=== PATIENT | female | born 1950 | race Caucasian/White ===

== ENCOUNTER → 2016-04-10 | Outpatient (CLI) | payer BC, MEDICARE ==
[~2016-04-10] MED LIST: DIOVAN 160MG160 MG PO; DIOVAN80 M1 PO; LEVOTHYROXIN0.125 MG PO; NEXIUM 20MG20 MG PO; NORCO 325 MG-51 TAB PO; NORCO 325 MG-7.1 TAB PO; NORVASC 5MG5 MG/TAB PO; PRO-AIR; PROAIR HFA0.09 MG/AC; SINGULAIR 110 MG/TAB PO; SINGULAIR10 MG PO; SYNTHROID0.1 MG PO; SYNTHROID0.1 MG/TAB PO; SYNTHROID0.112 MG/T PO; SYNTHROID0.137 MG PO; VITAMIN D 50,1.25 MG PO; WELLBUTRIN XL300 M1 PO; WELLBUTRIN XL300 MG PO; ZOFRAN ODT4 MG PO; ZYRTEC; ZYRTEC 10MG10 MG PO
== END ==
LOC: COL.VAS 14:04
DX: I08.0 Rheumatic disorders of both mitral and aortic valves (principal); R06.02 Shortness of breath

== ENCOUNTER → 2016-10-16 | Outpatient (CLI) | payer BC, MEDICARE | LOC: MC.RAD 14:41 | DX: Z12.31 Encounter for screening mammogram for malignant neoplasm of breast (principal) ==

== ENCOUNTER → 2016-10-19 | Outpatient (CLI) | payer BC, MEDICARE | LOC: COL.RAD 13:41 | DX: M47.26 Other spondylosis with radiculopathy, lumbar region (principal); M51.16 Intervertebral disc disorders with radiculopathy, lumbar region; M71.38 Other bursal cyst, other site; R29.898 Other symptoms and signs involving the musculoskeletal system; G89.29 Other chronic pain ==

== ENCOUNTER 2017-04-09 11:15 | Outpatient (RCR) | payer BC, MEDICARE | END 2017-04-19 08:41 | disposition home or self-care (01) | LOC: WSPT 11:15 | DX: M48.061 Spinal stenosis, lumbar region without neurogenic claudication (principal); M54.16 Radiculopathy, lumbar region | CPT/HCPCS: G8978-GP; G8979-GP; G8980-GP ==

== ENCOUNTER → 2018-11-09 | Outpatient (CLI) | payer BC, MEDICARE | LOC: MC.RAD 11:30 | DX: Z12.31 Encounter for screening mammogram for malignant neoplasm of breast (principal) ==

== ENCOUNTER → 2021-01-22 | Outpatient (CLI) | payer BC, MEDICARE ==
[~2021-01-22] MED LIST changes: +ASPIRIN 81M81 MG/TA2 PO; +CYMBALTA 30MG30 MG PO; +DIOVAN 80MG80 MG PO; +DIOVAN HCT 12.51 TA2 PO; +OMEGA-3 1000 MG1 CAP PO; +SYNTHROID0.088 MG/T PO; +VITAMIN E 400 U4001 PO; +VITAMIND3 5000 PO
== END ==
LOC: COL.PUL 07:50
DX: R06.02 Shortness of breath (principal)

== ENCOUNTER 2021-06-03 10:36 | Emergency (ER) | payer BC, MEDICARE ==
[~2021-06-03] VITALS: Ht 165.1 cm; Wt 100.0 kg
[2021-06-03 12:27] VITALS: TEMP 98.7
[2021-06-03] MEDS ORDERED: SARAFEM20 M1 PO (14:00)
[2021-06-03] MEDS ORDERED: SYNTHROID0.125 MG/T PO (14:01)
[2021-06-03 14:04] LABS: BASO % 0.4 % (0.0-2.0); EOS # 0.3 K/mm3 (0.0-0.7); EOS % 2.5 % (0.0-4.0); GRAN # 6.2 K/mm3 (1.4-6.5); GRAN % 60.5 % (42.2-75.2); HEMOGLOBIN 11.2 g/dl (12.5-16.0); MEAN CELL VOLUME 83 fl (80.0-100.0); MEAN CORPUSCULAR HEMOGLOBIN 28 pg (27-31); MEAN CORPUSCULAR HGB CONC 33 g/dl (33.0-37.0); MEAN PLATELET VOLUME 9.4 fl (7.4-10.4); MONO # 0.7 K/mm3 (0.1-0.6); PLATELET COUNT 264 K/mm3 (130-400); RED BLOOD COUNT 4.07 M/mm3 (4.10-5.30); REDCELL DISTRIBUTION WIDTH-CV 14.1 % (11.5-14.5)
[2021-06-03 14:06] LABS: HEMATOCRIT 33.7 % (37.0-47.0)
[2021-06-03 14:21] LABS: ALBUMIN 3.6 gm/dL (3.4-4.8); BILIRUBIN,TOTAL 0.3 mg/dL (0.2-1.2); CALCIUM 9.4 mg/dL (8.4-10.2); CREATININE, serum 0.76 mg/dL (0.57-1.11); POTASSIUM 3.2 mmol/L (3.5-4.5); TOTAL PROTEIN 6.9 gm/dL (6.2-8.1)
[2021-06-03 14:27] LABS: TROPONIN-I 0.01 ng/mL (0.00-0.033)
[2021-06-03 15:26] VITALS: BP 129/74; PULSE 85
== END 2021-06-03 15:27 | disposition home or self-care (01) ==
LOC: COL.ER 10:36
PROVIDERS: Personal Emergency Response Attendant
DX: E87.6 Hypokalemia (principal); R07.89 Other chest pain

== ENCOUNTER → 2021-11-06 | Outpatient (CLI) | payer BC, MEDICARE ==
[~2021-11-06] MED LIST changes: +SARAFEM20 M1 PO; +SYNTHROID0.125 MG/T PO
== END ==
LOC: COL.RAD 07:58
DX: K57.30 Diverticulosis of large intestine without perforation or abscess without bleeding (principal); N28.1 Cyst of kidney, acquired; D50.9 Iron deficiency anemia, unspecified
CPT/HCPCS: Q9967

== ENCOUNTER 2023-04-28 08:59 | Emergency (ER) | payer BC, MEDICARE ==
[~2023-04-28] VITALS: Ht 166.4 cm; Wt 102.7 kg
[2023-04-28 09:04] VITALS: TEMP 97.9
[2023-04-28 09:44] LABS: BASO % 0.3 % (0.0-2.0); EOS # 0.1 K/mm3 (0.0-0.7); EOS % 1.9 % (0.0-4.0); GRAN # 3.4 K/mm3 (1.4-6.5); GRAN % 58.5 % (42.2-75.2); HEMATOCRIT 39.8 % (37.0-47.0); HEMOGLOBIN 13.2 g/dl (12.5-16.0); LYMPH # 2.1 K/mm3 (1.2-3.4); LYMPH % 36.2 % (20.0-51.0); MEAN CELL VOLUME 81 fl (80.0-100.0); MEAN CORPUSCULAR HEMOGLOBIN 27 pg (27-31); MEAN CORPUSCULAR HGB CONC 33 g/dl (33.0-37.0); MEAN PLATELET VOLUME 9.3 fl (7.4-10.4); MONO # 0.2 K/mm3 (0.1-0.6); MONO % 2.8 % (1.7-9.3); PLATELET COUNT 190 K/mm3 (130-400); RED BLOOD COUNT 4.91 M/mm3 (4.10-5.30); REDCELL DISTRIBUTION WIDTH-CV 14.2 % (11.5-14.5)
[2023-04-28 10:02] LABS: ALANINE AMINOTRANSFERASE 24 U/L (0-55); ALBUMIN 3.6 gm/dL (3.4-4.8); ALKALINE PHOSPHATASE 113 U/L (40-150); ANION GAP 10 mmol/L (7-16); AST,SGOT 19 U/L (5-34); BILIRUBIN,TOTAL 0.5 mg/dL (0.2-1.2); BLOOD UREA NITROGEN 11 mg/dL (10-20); CALCIUM 9.7 mg/dL (8.4-10.2); CARBON DIOXIDE 24 mmol/L (23-31); CHLORIDE 105 mmol/L (98-107); CREATININE, serum 0.77 mg/dL (0.57-1.11); GLUCOSE 111 mg/dL (70-99); POTASSIUM 3.2 mmol/L (3.5-4.5); SODIUM 139 mmol/L (136-145)
[2023-04-28 10:10] LABS: TROPONIN-I < 0.010 ng/mL (0.00-0.033)
[2023-04-28 11:40] VITALS: BP 141/85; PULSE 74
== END 2023-04-28 11:40 | disposition home or self-care (01) ==
LOC: COL.ER 08:59
PROVIDERS: Personal Emergency Response Attendant
DX: I10 Essential (primary) hypertension (principal); Z79.899 Other long term (current) drug therapy
CPT/HCPCS: J1885; J2405; J7040

== ENCOUNTER → 2023-11-03 | Outpatient (CLI) | payer MEDICARE, BC | LOC: MC.RAD 11:10 | DX: Z12.31 Encounter for screening mammogram for malignant neoplasm of breast (principal) ==

== ENCOUNTER → 2023-11-08 | Outpatient (CLI) | payer BC, MEDICARE | LOC: MC.RAD 12:48 | DX: N60.42 Mammary duct ectasia of left breast (principal); N63.42 Unspecified lump in left breast, subareolar ==

== ENCOUNTER → 2023-11-24 | Outpatient (CLI) | payer BC, MEDICARE ==
[~2023-11-24] VITALS: Ht 165.1 cm; Wt 93.9 kg
[2023-11-24] VITALS (10 sets, daily range): BP systolic 108–153; BP diastolic 71–104; PULSE 84–96; TEMP 97.3
[~2023-11-24] MED LIST changes: +Midazolam 2 MG/2 ML VIAL IV SCH; +fentaNYL 50 MCG/ML 2 ML VIAL IV SCH
[2023-11-24 08:42] LABS: EOS % 0.4 % (0.0-4.0); GRAN # 1.4 K/mm3 (1.4-6.5); GRAN % 52.7 % (42.2-75.2); HEMOGLOBIN 10.7 g/dl (12.5-16.0); LYMPH # 1.2 K/mm3 (1.2-3.4); LYMPH % 45.5 % (20.0-51.0); MEAN CELL VOLUME 87 fl (80.0-100.0); MEAN CORPUSCULAR HEMOGLOBIN 29 pg (27-31); MEAN CORPUSCULAR HGB CONC 33 g/dl (33.0-37.0); MEAN PLATELET VOLUME 9.5 fl (7.4-10.4); MONO % 0.7 % (1.7-9.3); PLATELET COUNT 183 K/mm3 (130-400); REDCELL DISTRIBUTION WIDTH-CV 13.5 % (11.5-14.5)
== END ==
LOC: COL.RAD 07:55
PROVIDERS: Internal Medicine
DX: D72.819 Decreased white blood cell count, unspecified (principal); D64.9 Anemia, unspecified; R79.89 Other specified abnormal findings of blood chemistry
CPT/HCPCS: J2250; J3010